=== PATIENT | female | born 1955 | race Hispanic/Latino ===

== ENCOUNTER 2019-08-18 10:25 | Observation (INO) | payer MEDICARE ==
[~2019-08-18] VITALS: Ht 157.5 cm; Wt 77.4 kg
[2019-08-18 10:55] LABS: BASOPHILS % (AUTO) 0.7 % (0.0-5.0); EOSINOPHILS % (AUTO) 1.1 % (0.0-8.0); HEMATOCRIT 24.7 % (36-48); LYMPHOCYTES % (AUTO) 16.8 % (21.0-51.0); MEAN CORPUSCULAR HEMOGLOBIN 35.2 pg (27.0-33.0); MEAN CORPUSCULAR HGB CONC 35.3 g/dL (32.0-36.0); MEAN CORPUSCULAR VOLUME 99.7 fL (79-99); MONOCYTES % (AUTO) 7.1 % (3.0-13.0); NEUTROPHILS % (AUTO) 74.3 % (40.0-77.0); NUCLEATED RED BLOOD CELLS 0.2 % (0.0-0.19); PLATELET COUNT (AUTO) 58 K/uL (130-400); RED BLOOD CELL COUNT(AUTO) 2.48 MIL/uL (4.00-5.50); RED CELL DISTRIBUTION WIDTH 14.5 % (11.0-15.5); WHITE BLOOD COUNT (AUTO) 2.7 K/uL (4.8-10.8)
[2019-08-18 11:02] LABS: CREATININE 1.5 mg/dL (0.5-1.5)
[2019-08-18 11:04] LABS: B-TYPE NATRIURETIC PEPTIDE 42 pg/mL (0-100)
[2019-08-18 11:06] LABS: INR 1.5 (0.85-1.15); PARTIAL THROMBOPLASTIN TIME 27.3 SEC (26.3-35.5); PROTHROMBIN TIME 15.5 SEC (9.6-11.6)
[2019-08-18 11:07] LABS: ALBUMIN 2.4 g/dL (3.5-5.0); BILIRUBIN,TOTAL 3.1 mg/dL (0.2-1.0); TOTAL PROTEIN, SERUM 5.6 g/dL (6.0-8.3)
[2019-08-18 11:17] LABS: APPEARANCE,URINE Clear (CLEAR); BILIRUBIN,URINE Negative (NEGATIVE); COLOR,URINE Yellow (YELLOW); GLUCOSE, URINE (UA) Negative (NEGATIVE); KETONES,URINE Negative (NEGATIVE); LEUKOCYTE ESTERASE ,URINE Negative (NEGATIVE); NITRATE,URINE Negative (NEGATIVE); OCCULT BLOOD,URINE Nonhemolyzed Trace (NEGATIVE); PH,URINE 6.5 (5.0-8.0); PROTEIN,URINE Negative (NEGATIVE); UROBILINOGEN,URINE 0.2 mg/dL (0.2-1.0)
[2019-08-18 11:54] LABS: BACTERIA,URINE Many /HPF (None Seen); RBC,URINE 0-1 /HPF (0-1); SQUAMOUS EPITHELIAL CELL,UR 0-2 /HPF (0-2); WBC,URINE None Seen /HPF (0-1)
[2019-08-18 12:55] LABS: LYMPHOCYTES % (MANUAL) 13 % (22-44); MONOCYTES % (MANUAL) 6 % (2-9); PLATELET MORPHOLOGY COMMENT DECREASED; SEGMENTED NEUTROPHILS % 81 % (40-70)
[2019-08-18] MEDS ORDERED: 1/2 NORMAL SALINE 1,000 ML IV SCH (13:00)
[2019-08-18 14:10] VITALS: BP 130/64
[2019-08-18] MEDS: LACTULOSE 20 GM/30 ML UDCUP PO SCH ×2 (15:01→21:09)
[2019-08-18 16:25] VITALS: BP 159/79
[2019-08-18] MEDS ORDERED: SPIR100T PO (18:00)
[2019-08-18] MEDS ORDERED: LACT10SO62 PO (18:00)
[2019-08-18] MEDS ORDERED: RIFA550T PO (18:00)
[2019-08-18] MEDS ORDERED: PANT40TA PO (18:00)
[2019-08-18] MEDS ORDERED: ANAS1TAB7 PO (18:00)
[2019-08-18] MEDS ORDERED: ERGO500014 PO (18:00)
[2019-08-18] MEDS ORDERED: FURO40TA5 PO (18:00)
[2019-08-18 19:35] VITALS: BP 140/65
[2019-08-18 23:43] VITALS: BP 142/71
[2019-08-19 03:24] LABS: BASOPHILS % (AUTO) 0.9 % (0.0-5.0); EOSINOPHILS % (AUTO) 1.7 % (0.0-8.0); HEMATOCRIT 25.6 % (36-48); MEAN CORPUSCULAR HEMOGLOBIN 36.3 pg (27.0-33.0); MEAN CORPUSCULAR HGB CONC 35.5 g/dL (32.0-36.0); MEAN CORPUSCULAR VOLUME 102.1 fL (79-99); MONOCYTES % (AUTO) 8.5 % (3.0-13.0); NEUTROPHILS % (AUTO) 70.9 % (40.0-77.0); PLATELET COUNT (AUTO) 57 K/uL (130-400); RED BLOOD CELL COUNT(AUTO) 2.51 MIL/uL (4.00-5.50); RED CELL DISTRIBUTION WIDTH 14.8 % (11.0-15.5); WHITE BLOOD COUNT (AUTO) 4.1 K/uL (4.8-10.8)
[2019-08-19 03:25] VITALS: BP 140/74
[2019-08-19 03:41] LABS: ALBUMIN 2.4 g/dL (3.5-5.0); BILIRUBIN,TOTAL 5.4 mg/dL (0.2-1.0); CREATININE 1.4 mg/dL (0.5-1.5); POTASSIUM 4.4 mmol/L (3.5-5.1); TOTAL PROTEIN, SERUM 5.4 g/dL (6.0-8.3)
[2019-08-19] MEDS: LACTULOSE 20 GM/30 ML UDCUP PO SCH (03:58)
[2019-08-19 07:17] VITALS: BP 135/63
[2019-08-19] MEDS ORDERED: RIFAXIMIN 550 MG TABLET PO SCH (09:00)
[2019-08-19] MEDS ORDERED: SPIRONOLACTONE 25 MG TAB PO SCH (09:00)
[2019-08-19] MEDS ORDERED: ANASTROZOLE 1 MG PO SCH (09:00)
[2019-08-19] MEDS ORDERED: FUROSEMIDE 40 MG TABLET PO SCH (09:00)
== END 2019-08-19 11:39 | disposition home or self-care (01) ==
LOC: EDH 10:25 → EDHIP 12:35 → 4AH 13:38
PROVIDERS: ADMIT Internal Medicine; ATTEND Internal Medicine
DX: R41.0 Disorientation, unspecified (principal); K72.90 Hepatic failure, unspecified without coma; K74.60 Unspecified cirrhosis of liver; E11.9 Type 2 diabetes mellitus without complications; I10 Essential (primary) hypertension; Z87.891 Personal history of nicotine dependence; Z85.3 Personal history of malignant neoplasm of breast; Z90.11 Acquired absence of right breast and nipple; Z91.19 Patient's noncompliance with other medical treatment and regimen
CPT/HCPCS: 36415 ×2; 71045; 80053 ×2; 81001; 82140 ×2; 82550; 82948 ×2; 83880; 84443; 84484; 85025 ×2; 85610; 85730; 87804 ×2; 93005; 96360; 96361 ×2; 99284; G0378 ×23

== ENCOUNTER 2019-11-01 09:08 | Observation (INO) | payer MEDICARE ==
[~2019-11-01] VITALS: Ht 149.9 cm; Wt 84.0 kg
[~2019-11-01 09:08] MED LIST: ANAS1TAB7 PO; ERGO500014 PO; FURO40TA5 PO; LACT10SO62 PO; PANT40TA PO; RIFA550T PO; SPIR100T PO
[2019-11-01 09:25] LABS: EOSINOPHILS % (AUTO) 0.5 % (0.0-8.0); HEMATOCRIT 27.6 % (36-48); LYMPHOCYTES % (AUTO) 12.7 % (21.0-51.0); MEAN CORPUSCULAR HEMOGLOBIN 33.6 pg (27.0-33.0); MEAN CORPUSCULAR HGB CONC 35.1 g/dL (32.0-36.0); MEAN CORPUSCULAR VOLUME 95.5 fL (79-99); MONOCYTES % (AUTO) 7.1 % (3.0-13.0); NEUTROPHILS % (AUTO) 79.2 % (40.0-77.0); PLATELET COUNT (AUTO) 83 K/uL (130-400); RED BLOOD CELL COUNT(AUTO) 2.89 MIL/uL (4.00-5.50); WHITE BLOOD COUNT (AUTO) 4.1 K/uL (4.8-10.8)
[2019-11-01 09:39] LABS: CREATININE 1.6 mg/dL (0.5-1.5); POTASSIUM 3.7 mmol/L (3.5-5.1)
[2019-11-01 09:43] LABS: INR 1.53 (0.85-1.15); PROTHROMBIN TIME 15.8 SEC (9.6-11.6)
[2019-11-01 09:45] LABS: ALBUMIN 2.6 g/dL (3.5-5.0)
[2019-11-01 09:59] LABS: CREATINE KINASE, TOTAL 93 U/L (21-232); LIPASE 335 U/L (114-286)
[2019-11-01 10:00] LABS: ALCOHOL, BLOOD < 3 mg/dL (0-10)
[2019-11-01 10:02] LABS: BILIRUBIN,TOTAL 3.9 mg/dL (0.2-1.0)
[2019-11-01] MEDS ORDERED: SODIUM CHLORIDE 0.9% 1000ML 1,000 ML IV ONE (10:32)
[2019-11-01] MEDS ORDERED: LACTULOSE 20 GM/30 ML UDCUP ONE (10:49)
[2019-11-01 12:50] VITALS: BP 144/105
[2019-11-01] MEDS ORDERED: SODIUM CHLORIDE 0.9% 10 ML VIAL IVP PRN (13:30)
[2019-11-01] MEDS: LACTULOSE 20 GM/30 ML UDCUP PO SCH ×3 (14:00→20:16)
[2019-11-01] MEDS ORDERED: ACETAMINOPHEN 325 MG TAB PO PRN (14:15)
[2019-11-01 16:00] VITALS: BP 135/62
--- NOTE | 2019-11-01 16:46 | NUR ---
INITIAL MET W PATIENT ADMITTED FOR HEPATIC ENCEPHALOPATHY ABLE TO RESPONSE TO QUESTIONS AND ANSWER APPROPRIATELY lito POWERS, home safe and accessible, provider 21 hrs week, spouse tim to bring home who drives Addendum: 11/01/19 at 1648 by MARGARITA PRINGLE RN CM Amended: Links added.
[2019-11-01 19:00] VITALS: BP 128/73
[2019-11-01 23:21] VITALS: BP 125/52
[2019-11-02 04:57] VITALS: BP 134/81
[2019-11-02 06:25] LABS: BASOPHILS % (AUTO) 0.3 % (0.0-5.0); EOSINOPHILS % (AUTO) 2.3 % (0.0-8.0); HEMATOCRIT 23.3 % (36-48); LYMPHOCYTES % (AUTO) 15.2 % (21.0-51.0); MEAN CORPUSCULAR HEMOGLOBIN 33.6 pg (27.0-33.0); MEAN CORPUSCULAR HGB CONC 33.9 g/dL (32.0-36.0); MEAN CORPUSCULAR VOLUME 99.1 fL (79-99); MONOCYTES % (AUTO) 8.9 % (3.0-13.0); NEUTROPHILS % (AUTO) 72.7 % (40.0-77.0); PLATELET COUNT (AUTO) 37 K/uL (130-400); RED BLOOD CELL COUNT(AUTO) 2.35 MIL/uL (4.00-5.50); RED CELL DISTRIBUTION WIDTH 14.6 % (11.0-15.5); WHITE BLOOD COUNT (AUTO) 3.5 K/uL (4.8-10.8)
[2019-11-02 06:39] LABS: ALBUMIN 2.2 g/dL (3.5-5.0); BILIRUBIN,TOTAL 5.6 mg/dL (0.2-1.0); CREATININE 1.7 mg/dL (0.5-1.5); POTASSIUM 3.5 mmol/L (3.5-5.1); TOTAL PROTEIN, SERUM 5.1 g/dL (6.0-8.3)
[2019-11-02 08:00] VITALS: BP 122/69
--- NOTE | 2019-11-02 08:04 | NUR ---
DR LARSON ROUNDED ON PATIENT LABS ORDERS RECEIVED FOR CBC, BMP AND AMMONIA LEVEL IN AM, ORDERS PLACED
[2019-11-02] MEDS: LACTULOSE 20 GM/30 ML UDCUP PO SCH ×4 (09:04→20:13)
[2019-11-02 11:00] VITALS: BP 106/54
--- NOTE | 2019-11-02 11:34 | NUR ---
CM NOTE CM spoke to Dr. Jones regarding status clarification. States patient is observation and plans for discharge tomorrow.
[2019-11-02 16:00] VITALS: BP 116/54
[2019-11-02 20:11] VITALS: BP 134/68
[2019-11-03 00:50] VITALS: BP 138/69
[2019-11-03 04:00] VITALS: BP 132/64
[2019-11-03 05:04] LABS: BASOPHILS % (AUTO) 0.3 % (0.0-5.0); EOSINOPHILS % (AUTO) 4.3 % (0.0-8.0); HEMATOCRIT 22.7 % (36-48); LYMPHOCYTES % (AUTO) 20.9 % (21.0-51.0); MEAN CORPUSCULAR HEMOGLOBIN 32.8 pg (27.0-33.0); MEAN CORPUSCULAR HGB CONC 33.5 g/dL (32.0-36.0); MEAN CORPUSCULAR VOLUME 97.8 fL (79-99); NEUTROPHILS % (AUTO) 60.2 % (40.0-77.0); PLATELET COUNT (AUTO) 62 K/uL (130-400); RED BLOOD CELL COUNT(AUTO) 2.32 MIL/uL (4.00-5.50); RED CELL DISTRIBUTION WIDTH 14.6 % (11.0-15.5)
[2019-11-03 05:18] LABS: CREATININE 1.7 mg/dL (0.5-1.5); POTASSIUM 3.4 mmol/L (3.5-5.1)
[2019-11-03 08:00] VITALS: BP 132/69
[2019-11-03] MEDS: LACTULOSE 20 GM/30 ML UDCUP PO SCH (08:50)
[2019-11-03 11:00] VITALS: BP 152/75
== END 2019-11-03 13:41 | disposition home or self-care (01) ==
LOC: EDH 09:08 → EDHIP 10:57 → 4BH 12:50
PROVIDERS: ADMIT Internal Medicine; ATTEND Internal Medicine
DX: K74.60 Unspecified cirrhosis of liver (principal); K72.90 Hepatic failure, unspecified without coma; I10 Essential (primary) hypertension; E72.4 Disorders of ornithine metabolism; R41.82 Altered mental status, unspecified; D64.9 Anemia, unspecified; D69.6 Thrombocytopenia, unspecified; E87.6 Hypokalemia; E11.9 Type 2 diabetes mellitus without complications; N28.9 Disorder of kidney and ureter, unspecified; Z91.19 Patient's noncompliance with other medical treatment and regimen; Z85.3 Personal history of malignant neoplasm of breast; Z90.11 Acquired absence of right breast and nipple; Z79.899 Other long term (current) drug therapy
CPT/HCPCS: 36415 ×3; 70450; 71045; 80048; 80053 ×2; 82140 ×3; 82550; 82948 ×7; 83690; 84484; 85025 ×3; 85610; 85730; 93005; 99284; G0378 ×51; G0480; J7030

== ENCOUNTER 2019-11-13 09:20 | Emergency (ER) | payer MEDICARE ==
[2019-11-13 09:53] LABS: BASOPHILS % (AUTO) 0.3 % (0.0-5.0); EOSINOPHILS % (AUTO) 0.5 % (0.0-8.0); HEMATOCRIT 26.9 % (36-48); LYMPHOCYTES % (AUTO) 9.4 % (21.0-51.0); MEAN CORPUSCULAR HEMOGLOBIN 33.8 pg (27.0-33.0); MEAN CORPUSCULAR HGB CONC 34.9 g/dL (32.0-36.0); MEAN CORPUSCULAR VOLUME 96.8 fL (79-99); MONOCYTES % (AUTO) 6.8 % (3.0-13.0); NEUTROPHILS % (AUTO) 82.5 % (40.0-77.0); PLATELET COUNT (AUTO) 76 K/uL (130-400); RED BLOOD CELL COUNT(AUTO) 2.78 MIL/uL (4.00-5.50); RED CELL DISTRIBUTION WIDTH 15.4 % (11.0-15.5); WHITE BLOOD COUNT (AUTO) 3.8 K/uL (4.8-10.8)
[2019-11-13 10:03] LABS: INR 1.64 (0.85-1.15); PROTHROMBIN TIME 16.9 SEC (9.6-11.6)
[2019-11-13 10:11] LABS: CREATININE 1.5 mg/dL (0.5-1.5); POTASSIUM 3.9 mmol/L (3.5-5.1)
[2019-11-13 10:17] LABS: BILIRUBIN,TOTAL 4.9 mg/dL (0.2-1.0); TOTAL PROTEIN, SERUM 5.7 g/dL (6.0-8.3)
[2019-11-13 10:31] LABS: ALBUMIN 2.5 g/dL (3.5-5.0); BILIRUBIN,DIRECT 2.6 mg/dL (0.0-0.3)
[2019-11-13 10:48] LABS: APPEARANCE,URINE Clear (CLEAR); BILIRUBIN,URINE Negative (NEGATIVE); COLOR,URINE Yellow (YELLOW); GLUCOSE, URINE (UA) Negative (NEGATIVE); KETONES,URINE Negative (NEGATIVE); LEUKOCYTE ESTERASE ,URINE Moderate (NEGATIVE); NITRATE,URINE Negative (NEGATIVE); OCCULT BLOOD,URINE Trace (NEGATIVE); PH,URINE 5.5 (5.0-8.0); PROTEIN,URINE Negative (NEGATIVE); UROBILINOGEN,URINE 0.2 mg/dL (0.2-1.0)
[2019-11-13 11:25] LABS: BACTERIA,URINE Many /HPF (None Seen); RBC,URINE 0-1 /HPF (0-1); SQUAMOUS EPITHELIAL CELL,UR Rare /HPF (0-2)
[2019-11-13] MEDS ORDERED: LACTULOSE 20 GM/30 ML UDCUP ONE (14:18)
== END 2019-11-13 14:32 | disposition home or self-care (01) ==
LOC: EDH 09:20
DX: K74.60 Unspecified cirrhosis of liver (principal); R53.1 Weakness; E11.9 Type 2 diabetes mellitus without complications; I10 Essential (primary) hypertension
CPT/HCPCS: 36415; 70450; 71045; 80048; 80076; 81001; 82140; 82550; 83690; 84484; 85025; 85610; 85730; 93005

== ENCOUNTER → 2019-11-22 | Outpatient (CLI) | payer MEDICARE ==
[2019-11-22 08:55] LABS: ALBUMIN 2.5 g/dL (3.5-5.0); BILIRUBIN,DIRECT 2.1 mg/dL (0.0-0.3); BILIRUBIN,TOTAL 4.2 mg/dL (0.2-1.0); TOTAL PROTEIN, SERUM 6.2 g/dL (6.0-8.3)
== END | disposition home or self-care (01) ==
LOC: RAH 07:21
PROVIDERS: ATTEND Internal Medicine Gastroenterology
DX: K80.20 Calculus of gallbladder without cholecystitis without obstruction (principal); K74.60 Unspecified cirrhosis of liver; K76.6 Portal hypertension
CPT/HCPCS: 36415; 74181; 80076

== ENCOUNTER → 2019-11-25 | Outpatient (CLI) | payer MEDICARE ==
[~2019-11-25] MED LIST changes: +HYDR-4060 PO
== END | disposition home or self-care (01) ==
LOC: OIH 11:34
PROVIDERS: ATTEND Internal Medicine
DX: M47.816 Spondylosis without myelopathy or radiculopathy, lumbar region (principal); M48.061 Spinal stenosis, lumbar region without neurogenic claudication; M43.16 Spondylolisthesis, lumbar region
CPT/HCPCS: 72100

== ENCOUNTER 2019-11-29 09:53 | Observation (INO) | payer MEDICARE ==
[~2019-11-29] VITALS: Ht 152.4 cm; Wt 83.9 kg
[~2019-11-29 09:53] MED LIST changes: -HYDR-4060 PO
[2019-11-29] MEDS ORDERED: ONDANSETRON HCL 4 MG/2 ML VIAL ONE (10:31)
[2019-11-29 10:48] LABS: BASOPHILS % (AUTO) 0.1 % (0.0-5.0); EOSINOPHILS % (AUTO) 0.9 % (0.0-8.0); HEMATOCRIT 30.2 % (36-48); LYMPHOCYTES % (AUTO) 3.3 % (21.0-51.0); MEAN CORPUSCULAR HGB CONC 34.1 g/dL (32.0-36.0); MEAN CORPUSCULAR VOLUME 96.8 fL (79-99); MONOCYTES % (AUTO) 8.3 % (3.0-13.0); NEUTROPHILS % (AUTO) 86.6 % (40.0-77.0); PLATELET COUNT (AUTO) 89 K/uL (130-400); RED BLOOD CELL COUNT(AUTO) 3.12 MIL/uL (4.00-5.50); RED CELL DISTRIBUTION WIDTH 14.9 % (11.0-15.5); WHITE BLOOD COUNT (AUTO) 10.8 K/uL (4.8-10.8)
[2019-11-29 11:00] LABS: CREATININE 1.5 mg/dL (0.5-1.5); POTASSIUM 4.9 mmol/L (3.5-5.1)
[2019-11-29 11:03] LABS: INR 1.58 (0.85-1.15); PARTIAL THROMBOPLASTIN TIME 30.6 SEC (26.3-35.5); PROTHROMBIN TIME 16.3 SEC (9.6-11.6)
[2019-11-29 11:05] LABS: APPEARANCE,URINE Clear (CLEAR); BILIRUBIN,URINE Small (NEGATIVE); COLOR,URINE Dark Yellow (YELLOW); GLUCOSE, URINE (UA) Negative (NEGATIVE); KETONES,URINE Trace mg/dL (NEGATIVE); LEUKOCYTE ESTERASE ,URINE Negative (NEGATIVE); NITRATE,URINE Negative (NEGATIVE); OCCULT BLOOD,URINE Small (NEGATIVE); PROTEIN,URINE POS 1+ mg/dL (NEGATIVE)
[2019-11-29 11:07] LABS: ALBUMIN 2.4 g/dL (3.5-5.0); BILIRUBIN,DIRECT 2.8 mg/dL (0.0-0.3); BILIRUBIN,TOTAL 5.1 mg/dL (0.2-1.0); TOTAL PROTEIN, SERUM 5.7 g/dL (6.0-8.3)
[2019-11-29] MEDS ORDERED: MORPHINE SULFATE 4 MG/1ML SYG ONE (11:17)
[2019-11-29 11:42] LABS: BACTERIA,URINE Rare /HPF (None Seen); RBC,URINE 0-1 /HPF (0-1); SQUAMOUS EPITHELIAL CELL,UR 0-2 /HPF (0-2)
[2019-11-29] MEDS ORDERED: 1/2 NORMAL SALINE 1,000 ML IV SCH (15:30)
[2019-11-29] MEDS ORDERED: GLUCAGON 1MG KIT 1 MG ML IM PRN (15:30)
[2019-11-29] MEDS ORDERED: ALBUMIN (HUMAN) 25% 200 ML IV SCH (15:30)
[2019-11-29] MEDS ORDERED: DEXTROSE 50%-WATER 50 ML DISP.SYRIN IV PRN (15:30)
[2019-11-29] MEDS ORDERED: HYDROMORPHONE HCL 0.5 MG/0.5 ML ML IVP PRN (15:30)
[2019-11-29] MEDS ORDERED: ALBUMIN (HUMAN) 25% 200 ML IV ONE (15:35)
[2019-11-29] MEDS ORDERED: HYDROMORPHONE 1 MG/1 ML AMP IVP PRN (15:45)
--- NOTE | 2019-11-29 15:50 | NUR ---
U/S GD PARACENTESIS PROCEDURE PERFORMED BY DR. FARNSWORTH. PUNCTURE SITE LEFT UPPER QUADRANT OF ABDOMEN AND PATIENT TOLERATED PROCEDURE WELL. TOTAL REMOVED 4.4 LITERS OF CLOUDY YELLOW FLUID. END OF PROCEDURE AT 1610. CATHETER REMOVED AND DRESSING APPLIED. NO BLEEDING NOTED. ALBUMIN 25% 25 GRAMS GIVEN DURING PROCEDURE PER [facility] ALBUMIN PROTOCOL. REPORT CALLED TO REJI BENAVIDES, 4TH FLOOR NURSE. PT TRANSPORTED TO 4TH FLOOR RM 403 VIA STRETCHER, PT STABLE, AAO X3 WITH NO C/O PAIN. SPECIMEN SENT TO LAB.
[2019-11-29] MEDS: INSULIN R PO SS1 SQ SCH ×2 (16:30→21:00)
[2019-11-29 17:36] VITALS: BP 179/88
[2019-11-29 18:10] LABS: APPEARANCE BODY FLUID SLIGHTLY CLOUDY (CLEAR); BODY FLUID WBC 35 /cu. mm.; COLOR,BODY FLUID YELLOW (LT YELLOW); SPECIMENTYPE,BODY FLUID ASCITES; TOTAL VOLUME,BODY FLUID 9900 mL
[2019-11-29 18:11] LABS: BODY FLUID RBC 61 /cu. mm.
[2019-11-29 18:16] LABS: BF LYMPHOCYTE 22 %; BF MESOTHELIAL 27 %
[2019-11-29] MEDS ORDERED: HYDR-4060 PO (18:44)
[2019-11-29 20:00] VITALS: BP 134/66
[2019-11-30] VITALS: BP 166/65
[2019-11-30 04:00] VITALS: BP 136/66
[2019-11-30 06:23] LABS: HEMATOCRIT 24.3 % (36-48); MEAN CORPUSCULAR HEMOGLOBIN 33.2 pg (27.0-33.0); MEAN CORPUSCULAR HGB CONC 33.7 g/dL (32.0-36.0); MEAN CORPUSCULAR VOLUME 98.4 fL (79-99); PLATELET COUNT (AUTO) 50 K/uL (130-400); RED BLOOD CELL COUNT(AUTO) 2.47 MIL/uL (4.00-5.50); RED CELL DISTRIBUTION WIDTH 14.6 % (11.0-15.5); WHITE BLOOD COUNT (AUTO) 10.6 K/uL (4.8-10.8)
[2019-11-30] MEDS ORDERED: HYDROCODONE/ACETAMINOPHEN 5/325 MG TAB PO PRN (06:30)
[2019-11-30 06:37] LABS: CREATININE 1.4 mg/dL (0.5-1.5); POTASSIUM 5.2 mmol/L (3.5-5.1)
[2019-11-30] MEDS: INSULIN R PO SS1 SQ SCH ×2 (07:30→12:39)
[2019-11-30] MEDS ORDERED: PANTOPRAZOLE SODIUM 40 MG TABLET.DR PO SCH (07:30)
[2019-11-30 08:00] VITALS: BP 149/80
--- NOTE | 2019-11-30 08:14 | NUR ---
message sent to dr Rodriguez in regards to low sodium of 127 and potassium of 5.2; pending response.
[2019-11-30] MEDS ORDERED: RIFAXIMIN 550 MG TABLET PO SCH (09:00)
[2019-11-30] MEDS ORDERED: ANASTROZOLE 1 MG PO SCH (09:00)
[2019-11-30] MEDS ORDERED: LACTULOSE 20 GM/30 ML UDCUP PO SCH (09:00)
[2019-11-30] MEDS ORDERED: SPIRONOLACTONE 25 MG TAB PO SCH (09:00)
[2019-11-30] MEDS ORDERED: FUROSEMIDE 40 MG TABLET PO SCH (09:00)
[2019-11-30] MEDS ORDERED: ERGOCALCIFEROL (VITAMIN D2) 50,000 UNIT CAPSULE PO SCH (09:00)
[2019-11-30 11:00] VITALS: BP 122/76
--- NOTE | 2019-11-30 14:45 | NUR ---
pt and stated understanding of all d/c instructions on after care for a paracentesis; pt instructed to continue all current home medications and no new scripts; iv access removed.
== END 2019-11-30 15:00 | disposition home or self-care (01) ==
LOC: EDH 09:53 → EDHIP 14:58 → 4AH 16:38
PROVIDERS: ADMIT Internal Medicine; ATTEND Internal Medicine
DX: R18.8 Other ascites (principal); K74.60 Unspecified cirrhosis of liver; I10 Essential (primary) hypertension; G89.29 Other chronic pain; M54.5 Low back pain; M19.90 Unspecified osteoarthritis, unspecified site; E11.9 Type 2 diabetes mellitus without complications
CPT/HCPCS: 36415 ×2; 49083; 71045; 74176; 80048 ×2; 80076; 81001; 82140; 82550; 82948 ×2; 83690 ×2; 84484; 85025; 85027; 85610; 85730; 87071; 87205; 89051; 93005; 96372; 96374; 99285; A4215; G0378 ×24; J1170; J1815; J2270; J2405; P9046; 96365

== ENCOUNTER 2019-12-09 08:38 | Observation (INO) | payer MEDICARE ==
[~2019-12-09] VITALS: Ht 149.9 cm; Wt 82.3 kg
[~2019-12-09 08:38] MED LIST changes: +HYDR-4060 PO
[2019-12-09 09:24] LABS: BASOPHILS % (AUTO) 0.1 % (0.0-5.0); HEMATOCRIT 28.7 % (36-48); MEAN CORPUSCULAR HGB CONC 34.5 g/dL (32.0-36.0); MEAN CORPUSCULAR VOLUME 95.7 fL (79-99); NEUTROPHILS % (AUTO) 86.7 % (40.0-77.0); PLATELET COUNT (AUTO) 86 K/uL (130-400); RED CELL DISTRIBUTION WIDTH 14.8 % (11.0-15.5); WHITE BLOOD COUNT (AUTO) 8.3 K/uL (4.8-10.8)
[2019-12-09 09:35] LABS: CREATININE 1.7 mg/dL (0.5-1.5); POTASSIUM 4.6 mmol/L (3.5-5.1)
[2019-12-09 09:39] LABS: ALBUMIN 2.3 g/dL (3.5-5.0); BILIRUBIN,TOTAL 7.6 mg/dL (0.2-1.0); TOTAL PROTEIN, SERUM 5.8 g/dL (6.0-8.3)
[2019-12-09 09:42] LABS: INR 1.63 (0.85-1.15); PARTIAL THROMBOPLASTIN TIME 25.8 SEC (26.3-35.5); PROTHROMBIN TIME 16.8 SEC (9.6-11.6)
--- NOTE | 2019-12-09 13:00 | NUR ---
U/S GD PARACENTESIS PROCEDURE PERFORMED BY DR. FARNSWORTH. PUNCTURE SITE RIGHT LOWER QUADRANT OF ABDOMEN AND PATIENT TOLERATED PROCEDURE WELL. TOTAL REMOVED 5.2 LITERS OF CLOUDY YELLOW FLUID. END OF PROCEDURE AT 1400. CATHETER REMOVED AND DRESSING APPLIED. NO BLEEDING NOTED. ALBUMIN 25% 50 GRAMS ORDERED PER [facility] ALBUMIN PROTOCOL TO BE GIVEN UPON ARRIVAL TO FLOOR. REPORT CALLED TO REJI BORGES. PT TRANSPORTED TO ROOM 301 VIA BED, STABLE, AAO X3 WITH NO C/O PAIN. SPECIMEN SENT TO LAB.
[2019-12-09] MEDS ORDERED: ALBUMIN (HUMAN) 25% 200 ML IV SCH (13:30)
[2019-12-09 14:39] VITALS: BP 152/78
[2019-12-09 19:48] VITALS: BP 148/65
[2019-12-09 20:01] LABS: APPEARANCE BODY FLUID CLOUDY (CLEAR); SPECIMENTYPE,BODY FLUID ASCITES
[2019-12-09 20:02] LABS: BODY FLUID RBC 50 /cu. mm.; BODY FLUID WBC 67 /cu. mm.; COLOR,BODY FLUID YELLOW (LT YELLOW); TOTAL VOLUME,BODY FLUID 5200 mL
[2019-12-09 20:06] LABS: BF LYMPHOCYTE 15 %; BF MONOCYTE 31 %
[2019-12-09] MEDS: INSULIN R PO SS1 SQ SCH (21:00)
[2019-12-10 00:50] VITALS: BP 144/67
[2019-12-10 03:52] VITALS: BP 129/68
--- NOTE | 2019-12-10 04:25 | NUR ---
ACTIVITY Pt up ad dylan with assistance,[email or web address].Dressing to paracentesis site dry and intact.
[2019-12-10 05:50] LABS: CREATININE 1.4 mg/dL (0.5-1.5); POTASSIUM 4.3 mmol/L (3.5-5.1)
[2019-12-10 06:27] LABS: BASOPHILS % (AUTO) 0.2 % (0.0-5.0); EOSINOPHILS % (AUTO) 3.1 % (0.0-8.0); HEMATOCRIT 26.1 % (36-48); LYMPHOCYTES % (AUTO) 6.3 % (21.0-51.0); MEAN CORPUSCULAR HEMOGLOBIN 33.5 pg (27.0-33.0); MEAN CORPUSCULAR HGB CONC 34.5 g/dL (32.0-36.0); NEUTROPHILS % (AUTO) 80.3 % (40.0-77.0); PLATELET COUNT (AUTO) 58 K/uL (130-400); RED BLOOD CELL COUNT(AUTO) 2.69 MIL/uL (4.00-5.50); RED CELL DISTRIBUTION WIDTH 14.9 % (11.0-15.5); WHITE BLOOD COUNT (AUTO) 5.6 K/uL (4.8-10.8)
[2019-12-10] MEDS: INSULIN R PO SS1 SQ SCH (06:47)
--- NOTE | 2019-12-10 07:59 | NUR ---
DISCHARGE INSTRUCTIONS GIVEN AND EXPLAINED UTILIZING TEACH BACK METHOD,PT VERBALIZED UNDERSTANDING. ASSISTED PT AND ATTEMPTED TO CALL HER TO PICK HER UP BUT THERE WAS NO ANSWER. PT WAITING FOR HER RIDE. NOTIFIED REJI FORTE.
[2019-12-10 08:00] VITALS: BP 142/80
--- NOTE | 2019-12-10 09:45 | NUR ---
CM NOTE PER NURSE, NO NEEDS VERBALIZED FOR PATIENT. PATIENT DISCHARGING TODAY, PENDING RIDE TO PICK HER UP.
== END 2019-12-10 09:10 | disposition home or self-care (01) ==
LOC: EDH 08:38 → EDHIP 08:39 → 3AH 14:28
PROVIDERS: ADMIT Internal Medicine; ATTEND Internal Medicine
DX: R18.8 Other ascites (principal); R14.0 Abdominal distension (gaseous); K74.60 Unspecified cirrhosis of liver; E11.9 Type 2 diabetes mellitus without complications; I10 Essential (primary) hypertension; Z85.3 Personal history of malignant neoplasm of breast
CPT/HCPCS: 36415 ×2; 49083; 71045; 80048; 80053; 82948 ×3; 84484; 85025 ×2; 85610; 85730; 87071; 87205; 89051; 93005; 99285; A4215; G0378 ×18

== ENCOUNTER → 2019-12-16 | Outpatient (CLI) | payer MEDICARE ==
[~2019-12-16] MED LIST changes: +ALBUMIN (HUMAN) 25% 200 ML IV SCH
--- NOTE | 2019-12-16 12:30 | NUR ---
U/S GD PARACENTESIS PROCEDURE PERFORMED BY DR. FARNSWORTH. PUNCTURE SITE RIGHT LOWER QUADRANT OF ABDOMEN AND PATIENT TOLERATED PROCEDURE WELL. TOTAL REMOVED 5.7 LITERS OF CLOUDY YELLOW FLUID. END OF PROCEDURE AT 1200. CATHETER REMOVED AND DRESSING APPLIED. NO BLEEDING NOTED. ALBUMIN 25% 50 GRAMS IV GIVEN PER [facility] ALBUMIN PROTOCOL. DISCHARGE INSTRUCTIONS GIVEN AND PATIENT DISCHARGED VIA W/C AT 1230. STABLE, AAO X3 WITH NO C/O PAIN. SPECIMEN SENT TO LAB.
[2019-12-16 20:53] LABS: APPEARANCE BODY FLUID CLOUDY (CLEAR); COLOR,BODY FLUID YELLOW (LT YELLOW); TOTAL VOLUME,BODY FLUID 5700 mL
[2019-12-16 20:54] LABS: BODY FLUID RBC 96 /cu. mm.; BODY FLUID WBC 402 /cu. mm.
[2019-12-16 21:12] LABS: BF MESOTHELIAL 13 %; BF MONOCYTE 1 %
[2019-12-16 22:00] LABS: SPECIMENTYPE,BODY FLUID ASCITES
== END | disposition home or self-care (01) ==
LOC: RAH 09:35
PROVIDERS: ATTEND Internal Medicine
DX: R18.8 Other ascites (principal); K74.60 Unspecified cirrhosis of liver; Z79.899 Other long term (current) drug therapy; Z87.891 Personal history of nicotine dependence; Z83.3 Family history of diabetes mellitus
CPT/HCPCS: 49083; 87071; 87205; 89051; A4215; P9046

== ENCOUNTER 2019-12-23 15:17 | Observation (INO) | payer MEDICARE ==
[~2019-12-23] VITALS: Ht 149.9 cm; Wt 81.8 kg
[~2019-12-23 15:17] MED LIST changes: -ALBUMIN (HUMAN) 25% 200 ML IV SCH
--- NOTE | 2019-12-23 16:24 | NUR ---
[facility] Sw called but ER dept. Pt is direct admit but has order for [facility]. Sw met with pt's Jose Manuel and pt's daughter. Per daughter, pt was sent in for [place] cath placement and will dc with hospice services. Family states they were scheduled to meet with Elaine Lamb from [facility] at 2, but were sent to ER. Erin called Elaine and informed I had consent for her to meet with family. Elaine to meet with family tomorrow in am. Elaine already has pt information sent to [facility] from Dr Rodriguez's office. Katrina Luque made aware of above. SW to f/u in am
[2019-12-23 16:59] LABS: BASOPHILS % (AUTO) 0.1 % (0.0-5.0); EOSINOPHILS % (AUTO) 3.5 % (0.0-8.0); HEMATOCRIT 26.3 % (36-48); LYMPHOCYTES % (AUTO) 6.6 % (21.0-51.0); MEAN CORPUSCULAR HEMOGLOBIN 32.7 pg (27.0-33.0); MEAN CORPUSCULAR HGB CONC 34.6 g/dL (32.0-36.0); MEAN CORPUSCULAR VOLUME 94.6 fL (79-99); NEUTROPHILS % (AUTO) 74.8 % (40.0-77.0); PLATELET COUNT (AUTO) 93 K/uL (130-400); RED BLOOD CELL COUNT(AUTO) 2.78 MIL/uL (4.00-5.50); RED CELL DISTRIBUTION WIDTH 14.8 % (11.0-15.5); WHITE BLOOD COUNT (AUTO) 6.8 K/uL (4.8-10.8)
[2019-12-23 17:27] LABS: INR 1.51 (0.85-1.15); PARTIAL THROMBOPLASTIN TIME 34.4 SEC (26.3-35.5); PROTHROMBIN TIME 16.1 SEC (9.6-11.6)
[2019-12-23 17:28] LABS: ALBUMIN 2.4 g/dL (3.5-5.0); BILIRUBIN,TOTAL 6.2 mg/dL (0.2-1.0); POTASSIUM 5.1 mmol/L (3.5-5.1); TOTAL PROTEIN, SERUM 5.5 g/dL (6.0-8.3)
[2019-12-23] MEDS ORDERED: SODIUM CHLORIDE 0.9% 10 ML VIAL IVP SCH (18:15)
[2019-12-23 21:04] VITALS: BP 130/72
--- NOTE | 2019-12-23 21:04 | NUR ---
ADMISSION NOTE" Pt. admitted to floor via stretcher. Fully awake and very responsive. Denies any feeling of discomfort. Placed in bed with HOBE. VS checked and recorded. Head to toe assessment done. ( See CPOE flow chart for full assessment). Plan of care initiated. Has IV site to left hand # g.22 ,SL - patent and intact. Oriented to room and use of call light. Policies and procedures explained. Agreed and verbalized understanding. Consent signed for [place] Cath Placement to be done in AM. For [facility] consult in AM per ER staff report. Home meds listed.Kept monitored and observed for any unusual changes in condition. Needs attended and cared for. Distress / discomfort not noted.
[2019-12-24] VITALS (12 sets, daily range): BP systolic 114–159; BP diastolic 44–78
[2019-12-24] MEDS ORDERED: LACTULOSE 20 GM/30 ML UDCUP PO PRN (03:45)
[2019-12-24] MEDS ORDERED: MAG HYDROX/AL HYDROX/SIMETH ES 30 ML SUSP UDCUP PO PRN (03:45)
[2019-12-24] MEDS ORDERED: HYDROMORPHONE HCL 2 MG/ML VIAL IVP PRN (03:45)
[2019-12-24] MEDS ORDERED: CLONIDINE HCL 0.1 MG TABLET PO PRN (03:45)
[2019-12-24] MEDS ORDERED: ZOLPIDEM TARTRATE 5 MG TAB PO PRN (03:45)
[2019-12-24] MEDS ORDERED: ACETAMINOPHEN 325 MG TAB PO PRN ×2 (03:45)
[2019-12-24] MEDS ORDERED: DIPHENHYDRAMINE HCL 25 MG CAPSULE PO PRN (03:45)
[2019-12-24] MEDS ORDERED: DiphenhydrAMINE HCL 50 MG/ML VIAL IV PRN (03:45)
[2019-12-24] MEDS ORDERED: ONDANSETRON HCL 4 MG/2 ML VIAL IVP PRN (03:45)
[2019-12-24] MEDS ORDERED: GUAIFENESIN-DM 200/20 MG 10 ML PO PRN (03:45)
[2019-12-24] MEDS ORDERED: LACT10SO9 PO (04:21)
[2019-12-24] MEDS ORDERED: CHOL500062 PO (04:21)
[2019-12-24] MEDS ORDERED: CEFD300C3 PO (04:21)
[2019-12-24] MEDS ORDERED: PRED20TA3 PO (04:21)
[2019-12-24] MEDS ORDERED: FLUT9.9S NS (04:21)
[2019-12-24] MEDS ORDERED: CEPH500B PO (04:21)
[2019-12-24] MEDS ORDERED: METO5 PO ×3 (04:21)
[2019-12-24] MEDS ORDERED: ONDA-104 PO (04:21)
[2019-12-24] MEDS ORDERED: CYAN1TAB44 PO (04:23)
[2019-12-24] MEDS ORDERED: DEXTROSE 50%-WATER 50 ML DISP.SYRIN IV PRN (06:30)
[2019-12-24] MEDS ORDERED: GLUCAGON 1MG KIT 1 MG ML IM PRN (06:30)
--- NOTE | 2019-12-24 06:39 | NUR ---
REINALDO VILLANUEVA rounded: Visited and talked with the patient. Informed teletypewriter operator to let the patient go home after [place] Cath placement and [facility] consult.
[2019-12-24] MEDS: INSULIN HUMULIN R 100 UNIT/ML 3ML SQ SCH ×3 (06:53→16:30)
[2019-12-24] MEDS ORDERED: FAMOTIDINE 20MG TAB 20 MG TAB PO SCH (09:00)
[2019-12-24 09:05] LABS: INR 1.49 (0.85-1.15); PARTIAL THROMBOPLASTIN TIME 35.2 SEC (26.3-35.5); PROTHROMBIN TIME 15.8 SEC (9.6-11.6)
--- NOTE | 2019-12-24 09:21 | NUR ---
DCP: HOME WITH [facility]/OOHDNR Sw met with family who state they are meeting with [facility] at 1pm today. Pt is scheduled for nick cath placement this am, and per nurse Idalia, should be able to dc today. SW completed OOHDNR with pt and placed in chart for MD to sign. Erin spoke to Elaine and made her aware pt to dc today.
[2019-12-24] MEDS ORDERED: MIDAZOLAM HCL 1 MG/ML 2ML VIAL ONE (09:53)
[2019-12-24] MEDS ORDERED: FENTANYL CITRATE PF 50 MCG/1 ML 2ML VIAL ONE (09:54)
[2019-12-24] MEDS ORDERED: LIDOCAINE HCL 1% MDV 50ML VIAL ONE (09:54)
--- NOTE | 2019-12-24 13:58 | NUR ---
RD Notification Pt admitted with Terminal cirrhosis and Ascites. Possible discharge with hospice. If Pt continues stay, recommend to advance diet as tolerated to Heart Healthy, GI Soft diet order, 1500mL Fluid restriction. RD to continue to monitor. Please notify JULIANA as additional nutrition concerns arise. Thank you. Addendum: 12/24/19 at [address] RD Amended: Links added.
--- NOTE | 2019-12-24 14:57 | NUR ---
CALLED DR. NAJERA'S OFFICE AND SPOKE WITH TAWANDA RITCHIE REGARDING ORDERS TO STOP POSTOP VS TO DISCHARGE TO [facility]. PROVIDED WITH PHONE NUMBER TO RETURN CALL, ERMA VERBALIZED UNDERSTANDING. POST OP VS ARE COMPLETED AT 4:30 P.M.
--- NOTE | 2019-12-24 15:45 | NUR ---
[facility] ACCEPTED DCP PENDING DME DELIVERY. CM aware of ambulance transport needed
--- NOTE | 2019-12-24 16:07 | NUR ---
DME IN THE HOME Sw spoke to daughter who states DME is already at the home. Nurse is aware
== END 2019-12-24 17:05 | disposition home or self-care (01) ==
LOC: EDH 15:17 → EDHIP 15:18 → 3AH 18:54
PROVIDERS: ADMIT Internal Medicine; ATTEND Internal Medicine
DX: R18.8 Other ascites (principal); K74.60 Unspecified cirrhosis of liver; R06.00 Dyspnea, unspecified
CPT/HCPCS: 10030; 36415 ×2; 49418; 76705; 80053; 82948 ×2; 85025; 85610 ×2; 85730 ×2; 96374; 99284; A4215; A7048; G0378 ×10; J1170; J3490; 77001; J2250; J3010